=== PATIENT | female | born 1990 | race Caucasian/White ===

== ENCOUNTER 2022-09-21 06:25 | Inpatient (IN) | payer BC ==
[2022-09-21] MEDS ORDERED: Ondansetron 4 MG/2 ML SDV IVPUSH PRN (23:36)
[2022-09-21] MEDS ORDERED: Sodium Chloride 0.9% 10 ML Syringe FLUSH PRN (23:36)
[2022-09-21] MEDS ORDERED: Nalbuphine HCl 10 MG/ 1ML Amp IVPUSH PRN (23:36)
[2022-09-21] MEDS ORDERED: Lidocaine 1% 50 ML MDV INJECT ONE (23:36)
[2022-09-21] MEDS ORDERED: Oxytocin/Lactated Ringers 10 UNIT/1,000 ML BAG IV SCH (23:45)
[2022-09-22] MEDS ORDERED: Bupivacaine 0.25% 10 ML SDV ONE
[2022-09-22] MEDS: Lactated Ringers 1,000 ML IV SCH ×2 (00:15→00:45)
[2022-09-22] MEDS ORDERED: diphenhydrAMINE 50 MG/ML SDV IVPUSH PRN (00:48)
[2022-09-22] MEDS ORDERED: ePHEDrine 50 MG/ML SDV IVPUSH PRN (00:48)
[2022-09-22] MEDS ORDERED: Bupivacaine/fentaNYL/NS 100 ML Bag EPIDUR PRN (00:48)
[2022-09-22] MEDS ORDERED: fentaNYL 100 MCG/2 ML SDV EPIDUR PRN (00:48)
[2022-09-22] MEDS ORDERED: Oxytocin/Lactated Ringers 10 UNIT/1,000 ML BAG IV SCH (01:15)
[2022-09-22] MEDS ORDERED: Ibuprofen 600 MG Tab PO PRN ×2 (08:47→11:12)
[2022-09-22] MEDS ORDERED: Sodium Chloride 0.9% 10 ML Syringe FLUSH SCH (09:00)
[2022-09-22] MEDS ORDERED: Acetaminophen 325 MG Tab PO PRN (11:12)
[2022-09-22] MEDS ORDERED: Witch Hazel Medicated Pads 40/Jar TOP PRN (11:12)
[2022-09-22] MEDS ORDERED: Benzocaine/Menthol 20%-0.5% Spray 78 GM Cannister TOP PRN (11:12)
[2022-09-22] MEDS ORDERED: Docusate Sodium 100 MG Cap PO PRN (11:12)
[2022-09-23] MEDS ORDERED: Prenatal Multivitamin with Calcium/Folic Acid/Iron Tab PO SCH (09:00)
== END 2022-09-23 08:45 | disposition home or self-care (01) | DRG 560 ==
LOC: JD.OB 06:25 → OBSVTOIN 09-22 06:25 → JD.OB 09-22 06:26
PROVIDERS: ADMIT Obstetrics & Gynecology; ATTEND Obstetrics & Gynecology
PROC: 10E0XZZ Delivery of Products of Conception, External Approach (ICD-10-PCS; principal; 2022-09-22)
PROC: 0HQ9XZZ Repair Perineum Skin, External Approach (ICD-10-PCS; 2022-09-22)
PROC: 3E0R3BZ Introduction of Anesthetic Agent into Spinal Canal, Percutaneous Approach (ICD-10-PCS; 2022-09-22)
DX: O99.214 Obesity complicating childbirth (principal); O70.0 First degree perineal laceration during delivery; Z3A.39 39 weeks gestation of pregnancy; Z37.0 Single live birth
CPT/HCPCS: 01967; 36415; 51702; 59025; 59409; 80306; 85025; 86592; A9270-GY; J2590; J3010; J3490; J7120